=== PATIENT | female | born 1955 | race Caucasian/White ===

== ENCOUNTER 2016-11-03 08:26 | Day surgery (SDC) | payer BC ==
--- NOTE | 2016-10-24 16:42 | PREOP HISTORY & PHYSICAL ---
HISTORY: 60 year old female here for evaluation of developing cataracts OD > OS. The patient notes more problems with her vision in the right eye (blurry with monocular diplopia OD) along with more difficulty seeing the television, worsening glare symptoms when driving at night (she has significant "starbursts or haloes" around lights at night which makes her want to avoid night driving). She is also having to use a larger font on her iPad in order to read. The current glasses are about 2 years old. The patient was seen by Dr. Fernandez about 2 weeks ago who recommended the patient consider cataract surgery OD. PAST OCULAR HISTORY: "Cataracts" OD > OS, Glasses OCULAR MEDICATIONS: None PAST MEDICAL HISTORY: Depression Dyslipidemia (272.4) (E78.5) initially did not wish to start medication and to try diet/exercise, called with results and now wishes meds, starting lipitor at 20mg/day and recheck labs in 3 months. Osteoporosis (M81.0) previously treated with fosamax Post herpetic neuralgia (053.19) ALLERGIES: Demerol *ANALGESICS - OPIOID*1992 Vomiting. FAMIMILY HISTORY: No Significant Family Ocular History SOCIAL HISTORY: Alcohol use Drinks Socially. 1 G&T nightly Tobacco use Former smoker, Age quit smoking. quit 3 years ago but before only smoked few cigarettes/day. Quit smoking at 54 (smoked up to 1 ppd) Vehicle Driving Yes. CURRENT MEDICATIONS: Advil (200MG Capsule, Oral as needed) Active. Antioxidant Formula (Oral) Active. (Amarjit antioxidant with 900 mg Vitamin D) Atorvastatin Calcium (20MG Tablet, 1 (one) Oral daily, Taken starting 2015) Active. Co Q 10 (100MG Capsule, Oral daily) Active. FLUoxetine HCl (20MG Tablet, 1 Oral daily, Taken starting 2001) Active. Mineral Complex (3 Oral daily) Active. (Usana kelated minerals with 135 mg/2 capsules. Two capsules AM, 1 capsule PM) [place] 3 (1200MG Capsule, 1 Oral daily) Active. Osteo Bi-Flex Adv Double St (1 Oral two times daily) Active. Tylenol (325MG Tablet, 2 Oral as needed) Active. Vivelle-Dot (0.075MG/24HR Patch TW, Transdermal twice weekly) Active. Medications Reconciled PAST SURGICAL HISTORY: ABLATION, ENDOMETRIOSIS (10142) Delivery REVIEW OF SYSTEMS: General Not Present- Fever. Skin Not Present- New Lesions, Skin Cancer and Skin Problems. HEENT Not Present- Blurred Vision, Decreased Hearing, Eye Pain, Sinusitis and Sleep Apnea. Respiratory Not Present- Asthma, Chronic Cough, Emphysema and Shortness of Breath. Breast Not Present- Breast Cancer. Cardiovascular Not Present- Angina, Heart Problems, Heart Stent, Hyperlipidemia and Hypertension. Gastrointestinal Not Present- Heartburn and PUD. Female Genitourinary Not Present- Kidney Problems. Musculoskeletal Not Present- Joint Pain. Neurological Not Present- Decreased Memory, Headaches, Stroke and Vertigo. Psychiatric Not Present- Anxiety and Depression. Endocrine Not Present- Diabetes and Thyroid Problems. Hematology Not Present- Bleeding Problems and Blood Clots. Note: Reviewed by Dr. Meehan. PHYSICAL EXAMINATION: Vitals (Colt Meehan M.D.; 10/11/2016 5:23 PM) 10/11/2016 5:23 PM Pulse: 80 (Regular) P.OX: 96% (Room air) BP: 134/76 (Sitting, Left Wrist, Small) Chest and Lung Exam Auscultation Breath sounds - Clear and Symmetric throughout. Cardiovascular Auscultation Rhythm - Regular. Heart Sounds - Normal heart sounds. Murmurs & Other Heart Sounds - Auscultation of the heart reveals - No Murmurs. OCULAR EXAMINATION: VISUAL ACUITY: with correction (Glasses) OD 20/200 OS 20/25-1 NEAR J1+ at 14" WORKING Rx: OD -0.75 + 0.50 x 093 OS +0.50 + 0.50 x 075 ADD + 2.00 (Progressive lens) MANIFEST REFRACTION: OD -3.00 Sphere (20/30-2 BAT 20/50) Better vision in trial frames OS [place] + 0.50 x 093 (20/25-2 BAT 20/30-2) No improvement in vision ADD + 2.50 (J1+ at 14") Better near vision in trial frames than previous Rx CONFRONTATIONAL VISUAL CULLEN: Normal to counting fingers in four quadrants OU PUPILS: Round and equal OU with no afferent pupillary defect seen EXTERNAL: Normal OU EXTRA-OCULAR MUSCLES: Versions full OU - orthotropic at both distance and near SLIT LAMP EXAM: LIDS/LASHES: Normal OU CONJUNCTIVA: Quiet OU CORNEA: Clear with scant tear film OU. Mild to moderate guttata with some polymegathism of endothelium OU on specular reflection AC: Deep and quiet OU IRIS: Normal OU PUPILS: Round OU - dilated widely OU LENS: 3+ dense yellow central nuclear sclerosis with 2+ diffuse cortical cataract changes OD. 1+ nuclear sclerosis with 1-2+ cortical cataract changes OS. No posterior sub-capsular cataract changes seen OU ANTERIOR VITREOUS: No anterior vitreous cells or pigment seen OU TONOMETRY: TIME: 4:07 PM OD: 17 mm Hg OS: 17 mm Hg DILATING gtt: Phenylephrine 2.5% + Tropicamide 1% FUNDUS: C/D: 0.5 OU DISCS: Sharp with clear disc margins OU MACULA: Absent foveal reflex OU VESSELS: Normal OU PERIPHERY: Posterior vitreous detachment OD with a large floater mass almost directly over the macula OD KERATOMETRY: OD 44.49 / 44.81 x 179 OS 44.41 / 44.78 x 081 AXIAL LENGTH: OD 23.69 +/- 0.008 OS 23.70 +/- 0.013 IMPRESSION: Cataract, nuclear sclerotic senile, bilateral (H25.13) Story: Visually significant cataracts OD >> OS. Discussed with patient today who is very bothered by her current symptoms in the right eye and would like to proceed with cataract surgery in the right eye. We discussed the refractive goals today and the patient would like to be corrected to a near-plano spherical equivalent postoperatively OD. Refractive error - note a dramatic myopic shift OD. Discussed with patient today and we discussed possible glasses as an option instead of cataract surgery. She has noted such a dramatic change in her vision over a short period of time that she feels that glasses would be only a short-term temporary solution for the right eye (and I would agree). She would like to proceed with cataract surgery OD. Posterior vitreous detachment OD - the patient has significant floaters OD which may become more bothersome postoperatively. Posterior vitreous detachment OD - the patient has significant floaters OD which may become more bothersome postoperatively (discussed with patient today). PLAN: Cataract surgery with intra-ocular lens OD, November 03, 2916, Lid soaks and scrubs BID OU (pre-operative blepharitis protocol and antibiotic ointment instructions handout given to patient today). Erythromycin ophthalmic ointment q hs OU as blepharitis prophylaxis (an e-Rx with refills x 1 was sent to [facility] ([phone]) today). Current Plans BIOMETRY, OPHTHALMIC, BY PARTIAL COHERENCE INTERFEROMETRY (13961) Started Erythromycin 5MG/GM, Apply 1/8 inch Ointment to the eyelashes of both eyes at bedtime, 1 Tube, 10/11/2016, Ref. x1. Started Gatifloxacin 0.5%, 1 (one) drop four times daily to the operated eye, after surgery, 1 Bottle, 10/11/2016, Ref. x1. Started PrednisoLONE Acetate 1%, 1 drop(s) four times daily in the operated eye , after surgery, 10 Milliliter, 10/11/2016, Ref. x1. MTDD
[~2016-11-03 08:26] MED LIST: APRACLONIDINE 0.5% OPHTH 5 ML BTL OP ONE; BUPIVACAINE HCL/PF 0.75% 10 ML VIAL OP ONE; CIPROFLOXACIN 0.3% OPHTH 50 DROP/5 ML BTL OP SCH; CYCLOPENTOLATE HCL 1% OPHTH 2 ML BTL OP SCH; FLURBIPROFEN 0.03% OPHTH 2.5 ML BTL OP SCH; PHENYLEPHRINE 2.5% OPHTH 10 DROP/2 ML BTL OP SCH
[2016-11-03] MEDS ORDERED: BUPIVACAINE HCL/PF 0.75% 10 ML VIAL ONE (08:52)
[2016-11-03] MEDS ORDERED: CIPROFLOXACIN 0.3% OPHTH 50 DROP/5 ML BTL ONE (08:53)
[2016-11-03] MEDS ORDERED: APRACLONIDINE 0.5% OPHTH 5 ML BTL ONE (08:53)
[2016-11-03] MEDS ORDERED: FLURBIPROFEN 0.03% OPHTH 2.5 ML BTL ONE (08:53)
[2016-11-03] MEDS ORDERED: CYCLOPENTOLATE HCL 1% OPHTH 2 ML BTL ONE (08:53)
[2016-11-03] MEDS ORDERED: PHENYLEPHRINE 2.5% OPHTH 10 DROP/2 ML BTL ONE (08:53)
[2016-11-03] MEDS ORDERED: BACITRACIN OPHTH OINTMENT 3.5 GM TUBE ONE ×2 (09:54→10:30)
[2016-11-03] MEDS ORDERED: CHONDROITIN/HYALURONIDATE OPHT 0.5 ML KIT ONE ×2 (09:54→10:30)
[2016-11-03] MEDS ORDERED: KETOROLAC 0.45% OPHTH 1 DROP/EACH DROPERETTE ONE ×2 (09:54→10:30)
[2016-11-03] MEDS ORDERED: LIDOCAINE HCL/PF 1% 30 ML VIAL ONE ×2 (09:54→10:30)
[2016-11-03] MEDS ORDERED: MIDAZOLAM HCL 2 MG/2 ML VIAL ONE (10:25)
[2016-11-03 10:52] VITALS: BP 120/86; PULSE 55; RESP 20; O2SAT 95
--- NOTE | 2016-11-03 14:18 | OPERATIVE REPORT ---
DATE OF SURGERY: 11/03/2016. SURGEON: Colt Meehan MD ANESTHESIA: Topical with monitored anesthesia care. PREOPERATIVE DIAGNOSIS: Cataract, right eye. POSTOPERATIVE DIAGNOSIS: Cataract, right eye. OPERATION PERFORMED: Cataract extraction by phacoemulsification with posterior chamber intraocular lens, right eye. COMPLICATIONS: None. PROCEDURE: The patient was brought to the operating room where she was placed in the supine position. After the instillation of additional tetracaine drops in the right eye, the eye was prepped and draped in the usual sterile ophthalmic manner. A lid speculum was placed in the right eye, after which an inferior paracentesis was fashioned with 1-mm steel keratome, and 0.2 mL of 1% nonpreserved lidocaine was injected intracamerally followed by Viscoat. A temporal clear corneal incision of 3-mm width was fashioned with a steel keratome. A continuous curvilinear capsulorrhexis was fashioned with a bent- needle cystitome and Utrata forceps under Viscoat. Hydrodissection was carried out with balanced salt solution on an intraocular cannula. The nucleus was noted to rotate freely. Phacoemulsification proceeded in a two-handed fashion utilizing typical phacoemulsification times and schultz, as the nucleus was noted to be 2-3+ dense. Residual cortical material was then removed with the automated irrigation-aspiration handpiece. The anterior chamber and capsular bag were then reinflated with Provisc, after which an AcrySof model SA60AT foldable acrylic intraocular lens of 19.0 diopters power was placed into the capsular bag. The haptics were rotated with a Y hook and the intraocular lens was noted to center well. Residual viscoelastic was then removed with the automated irrigation-aspiration handpiece , after which the wound edges were hydrated with balanced salt solution. The intraocular pressure at the conclusion of the procedure was physiologic, and there was no evidence of wound leakage upon testing with a Weck Madeleine sponge. Acular drops and bacitracin ointment were placed in the right eye, and the patient was brought to the recovery area, having tolerated the procedure well. She was given full postoperative instructions. INES
== END 2016-11-03 11:00 | disposition home or self-care (01) ==
LOC: SDS 08:26
PROVIDERS: ATTEND Ophthalmology
DX: H25.11 Age-related nuclear cataract, right eye (principal); E78.5 Hyperlipidemia, unspecified; M81.0 Age-related osteoporosis without current pathological fracture; Z79.899 Other long term (current) drug therapy
CPT/HCPCS: J0171; J2250; V2632